=== PATIENT | female | born 1955 | race Two or more races ===

== ENCOUNTER 2018-11-02 23:33 | Emergency (ER) | payer MEDICARE, BC ==
[~2018-11-02] VITALS: Ht 160 cm; Wt 59.0 kg
[~2018-11-02 23:33] MED LIST: PRAMIPEXOLE D0.25 MG ORAL; RANITIDINE HCL150 MG ORAL
[2018-11-03 00:02] VITALS: BP 137/73
--- NOTE | 2018-11-03 00:03 | NUR ---
ED Nurse Note: Patient walked in to ER c/o N/V. Per patient she had elbow surgery at [facility] today morning, after she got Hydrocodone-Acetamin 10-325mg, she started vomiting. Patient so weak, restless. AAO x4, VSS at this time, skin is dry, intact. Patient presented with a sling on her left arm.
[2018-11-03] MEDS ORDERED: Metoclopramide 10mg/2ml Inj IVP ONE (00:45)
--- NOTE | 2018-11-03 00:56 | NUR ---
ED Nurse Note: Patient was medicated, states feel in the same way.
[2018-11-03 01:07] LABS: HEMATOCRIT 43.2 % (37.0-47.0); HEMOGLOBIN 14.4 G/DL (12.0-16.0); MEAN CORPUSCULAR VOLUME 89 FL (80-99); PLATELET COUNT 85 K/UL (150-450); RED BLOOD COUNT 4.87 M/UL (4.20-5.40); RED CELL DISTRIBUTION WIDTH 11.9 % (11.6-14.8); WHITE BLOOD COUNT 7.8 K/UL (4.8-10.8)
[2018-11-03] MEDS ORDERED: Morphine Sulfate 4mg/ml Inj (IV USE ONLY) IVP ONE (01:15)
[2018-11-03 01:20] LABS: ANION GAP 11 mmol/L (5-15); BLOOD UREA NITROGEN 14 mg/dL (7-18); CALCIUM 9.9 MG/DL (8.5-10.1); CARBON DIOXIDE 29 MMOL/L (21-32); CHLORIDE 100 MMOL/L (98-107); CREATININE 0.8 MG/DL (0.55-1.30); POTASSIUM 3.8 MMOL/L (3.5-5.1); SODIUM 140 MMOL/L (136-145)
[2018-11-03 01:28] LABS: ALANINE AMINOTRANSFERASE 28 U/L (12-78); ALBUMIN 4.3 G/DL (3.4-5.0); ALBUMIN/GLOBULIN RATIO 1.1 (1.0-2.7); ALKALINE PHOSPHATASE 65 U/L (46-116); ASPARTATE AMINO TRANSFERASE 29 U/L (15-37); BILIRUBIN,TOTAL 0.7 MG/DL (0.2-1.0)
[2018-11-03] MEDS ORDERED: DiphenhydrAMINE 50mg/ml Inj IVP ONE (01:30)
[2018-11-03 02:10] VITALS: BP 137/73
--- NOTE | 2018-11-03 02:10 | NUR ---
ER DISCHARGE NOTE: Patient is cleared to be discharged per ERMD, pt is aox4, on room air, with stable vital signs. pt was given dc and prescription instructions, pt was able to verbalize understanding, pt id band and iv site removed without complications. pt is able to ambulate with steady gait. pt took all belongings.
[2018-11-03] MEDS ORDERED: REGLAN10 MG ORAL (02:49)
[2018-11-03] MEDS ORDERED: D5 1/2NS w/KCl 20mEq 1,000 ML IV SCH (03:30)
[2018-11-03] MEDS ORDERED: Haloperidol Lactate 5 MG in D5W 55 ML IVPB ONE (03:30)
--- NOTE | 2018-11-03 21:55 | Emergency Room Report ---
History of Present Illness General Chief Complaint: Nausea Source: Patient Present Illness [facility] Patient is a 63-year-old female presented after persistent nausea and vomiting after recent surgery to her left upper extremity. Patient had outpatient procedure for which she had unclear anesthesia. She had been taking Alvord 10/ 325 for pain. Patient was noted to have recent increase in vomiting. She had not been having any diarrhea. Patient denies any hematemesis. She has been having multiple episodes of vomiting. Allergies: Coded Allergies: No Known Allergies (Unverified , 04/17/16) Patient History Past Medical History: see triage record Last Menstrual Period: na Reviewed Nursing Documentation: PMH: Agreed; PSxH: Agreed Nursing Documentation-PMH Past Medical History: No Stated History Hx Cardiac Problems: Yes - high cholesterol Review of Systems All Other Systems: negative except mentioned in HPI Physical Exam Vital Signs Date Time Temp Pulse Resp B/P (MAP) Pulse Ox O2 Delivery O2 Flow Rate FiO2 11/02/18 23:37 98.1 89 16 96 Room Air 11/03/18 00:02 137/73 Sp02 EP Interpretation: reviewed, normal General Appearance: normal inspection, alert, GCS 15, mild distress Head: atraumatic ENT: normal ENT inspection, hearing grossly normal, normal voice Neck: normal inspection, full range of motion, supple, no bony tend Respiratory: normal inspection, lungs clear, normal breath sounds, no respiratory distress, no retraction, no wheezing Cardiovascular #1: regular rate, rhythm, no edema Gastrointestinal: normal inspection, normal bowel sounds, non tender, soft, no guarding, no hernia Genitourinary: no CVA tenderness Musculoskeletal: back normal, other - Left upper extremity in a sling. Good hand function and normal perfusion. Neurologic: normal inspection, alert, responsive, speech normal Psychiatric: normal inspection, judgement/insight normal, mood/affect normal Skin: normal inspection, normal color, no rash Medical Decision Making Diagnostic Impression: Primary Impression: Severe vomiting following anesthesia ER Course Patient presented for nausea and vomiting. Differential diagnosis include was not limited to anesthesia reaction, Alvord induced vomiting, ileus, obstruction among others. Patient was noted to have emesis likely due to recent surgery. Patient was given IV fluids as well as antiemetics. Patient was noted to have improvement in her symptoms after several medications. Patient stated she felt better and wanted to leave. Patient was advised to return if she felt worse. She was given prescription for antiemetics. She was advised to follow up with her doctor for recheck. , Labs Test 11/03/18 00:31 White Blood Count 7.8 K/UL (4.8-10.8) Red Blood Count 4.87 M/UL (4.20-5.40) Hemoglobin 14.4 G/DL (12.0-16.0) Hematocrit 43.2 % (37.0-47.0) Mean Corpuscular Volume 89 FL (80-99) Mean Corpuscular Hemoglobin 29.5 PG (27.0-31.0) Mean Corpuscular Hemoglobin Concent 33.3 G/DL (32.0-36.0) Red Cell Distribution Width 11.9 % (11.6-14.8) Platelet Count 85 K/UL (150-450) Mean Platelet Volume 9.5 FL (6.5-10.1) Neutrophils (%) (Auto) % (45.0-75.0) Lymphocytes (%) (Auto) % (20.0-45.0) Monocytes (%) (Auto) % (1.0-10.0) Eosinophils (%) (Auto) % (0.0-3.0) Basophils (%) (Auto) % (0.0-2.0) Differential Total Cells Counted 100 Neutrophils % (Manual) 93 % (45-75) Lymphocytes % (Manual) 6 % (20-45) Monocytes % (Manual) 1 % (1-10) Eosinophils % (Manual) 0 % (0-3) Basophils % (Manual) 0 % (0-2) Band Neutrophils 0 % (0-8) Platelet Estimate Decreased Platelet Morphology Normal Sodium Level 140 MMOL/L (136-145) Potassium Level 3.8 MMOL/L (3.5-5.1) Chloride Level 100 MMOL/L (98-107) Carbon Dioxide Level 29 MMOL/L (21-32) Anion Gap 11 mmol/L (5-15) Blood Urea Nitrogen 14 mg/dL (7-18) Creatinine 0.8 MG/DL (0.55-1.30) Estimat Glomerular Filtration Rate > 60 mL/min (>60) Glucose Level 134 MG/DL (74-106) Calcium Level 9.9 MG/DL (8.5-10.1) Total Bilirubin 0.7 MG/DL (0.2-1.0) Aspartate Amino Transf (AST/SGOT) 29 U/L (15-37) Alanine Aminotransferase (ALT/SGPT) 28 U/L (12-78) Alkaline Phosphatase 65 U/L (46-116) Total Protein 8.3 G/DL (6.4-8.2) Albumin 4.3 G/DL (3.4-5.0) Globulin 4.0 g/dL Albumin/Globulin Ratio 1.1 (1.0-2.7) Last Vital Signs Date Time Temp Pulse Resp B/P (MAP) Pulse Ox O2 Delivery O2 Flow Rate FiO2 11/03/18 02:10 98.1 16 137/73 96 Room Air 11/02/18 23:37 89 Status: improved Disposition: HOME, SELF-CARE Condition: Stable Scripts Metoclopramide Hcl* (REGLAN*) 10 Mg Tablet 10 MG ORAL THREE TIMES A DAY, #20 TAB Prov: Hi Lechuga MD 11/03/18 Referrals: NOT CHOSEN IPA/MD,REFERRING Patient Instructions: Nausea, Adult Additional Instructions: Return if worse. Hi Lechuga MD November 03, 2018 21:55
== END 2018-11-03 02:10 | disposition home or self-care (01) ==
LOC: EMR 11-03 00:30
DX: R11.10 Vomiting, unspecified (principal); E78.00 Pure hypercholesterolemia, unspecified
CPT/HCPCS: 36415; 80053; 85007; 85025; 96365; 96366; 96368; 96375; 96376; 99284; J1200; J2405; J2765; J7040